=== PATIENT | female | born 1990 | race Caucasian/White ===

== ENCOUNTER 2016-09-25 17:03 | Emergency (ER) | payer BC, OTHER ==
[~2016-09-25] VITALS: Wt 61.0 kg
[2016-09-25] MEDS ORDERED: ONDANSETRON (ODT) 4 MG TAB ODT STA (18:46)
[2016-09-25] MEDS ORDERED: HYDROCODONE/APAP (5/325) TAB PO ONE (19:00)
[2016-09-25 19:03] LABS: URINE BLOOD (Dip) POC Negative (NEGATIVE)
--- NOTE | 2016-09-25 19:17 | RADRPT ---
PROCEDURE: XR CHEST AP PORTABLE CLINICAL INDICATION: Chest pain TECHNIQUE: Single frontal view of the chest COMPARISON: None. FINDINGS: The cardiomediastinal silhouette and pulmonary vasculature are normal. The lungs are clear. No consolidation, effusion, or pneumothorax. The osseous structures are unremarkable. IMPRESSION: No acute cardiopulmonary process. RPTAT:PP .Dany Malave MD, MD Date Time Electronically viewed and signed by .Dany Malave MD, MD on 09/25/2016 19:17 .V/
[2016-09-25] MEDS ORDERED: KETOROLAC 60 MG INJ IM STA (20:25)
[2016-09-25] MEDS ORDERED: PRED20TA PO (20:51)
[2016-09-25] MEDS ORDERED: HYDR-906 PO (20:51)
--- NOTE | 2016-09-25 20:58 | ERD ---
ER Documentation Chief Complaint Date/Time DATE: 09/25/16 TIME: 20:53 Chief Complaint CHEST PAIN, SOB, "THORACIC OUTLET SYNDROME" PER PT HPI 25-year-old female patient with a past medical history of thoracic outlet syndrome, depression, anxiety, PTSD, fibromyalgia, rheumatoid arthritis presents to the ED complaining of chest pain or shortness of breath that started about 2 days ago. Reports that it is an intense pain. States that she does follow-up with a specialist, Dr. Clancy for her history of thoracic outlet syndrome. Denies any trauma. Reports that her right rib region is especially painful in the mid sternum. States that she has chronic numbness and tingling of her bilateral hands. Reports that she believes that this is a flareup of her thoracic outlet syndrome. States that she has had a previous surgical operation of the right side clavicle and T1 region. States that she has an upcoming surgery within 1 year. States that the pain is worse when she is sitting and is better when she is standing. Reports that she is nauseous but denies any vomiting, diarrhea, abdominal pain, dysuria. ROS All systems reviewed and are negative except as per history of present illness. Medications Home Meds Active Scripts Prednisone* (Prednisone*) 20 Mg Tab, 40 MG PO DAILY for 4 Days, TAB Prov:RALPH BUCKNER PA-C 09/25/16 Hydrocodone/Acetaminophen (Circle 5-325 Tablet) 1 Each Tablet, 1 TAB PO QHS Y for PAIN, #3 TAB Prov:RALPH BUCKNER PA-C 09/25/16 Allergies Allergies: Coded Allergies: No Known Allergy (Unverified , 09/25/16) PMhx/Soc Hx Miscellaneous Medical Probl: Yes (RA, FM. Anxiety, PTSD) Hx Alcohol Use: No Hx Substance Use: No Hx Tobacco Use: No Smoking Status: Current every day smoker Physical Exam Vitals Vital Signs Date Time Temp Pulse Resp B/P Pulse Ox O2 Delivery O2 Flow Rate FiO2 09/25/16 21:30 80 17 133/87 99 Room Air 09/25/16 17:06 98.8 101 18 142/93 98 Physical Exam Const: [id number], well-nourished. In no acute distress. Head: Atraumatic, normocephalic Eyes: Normal Conjunctiva without injection. No purulent discharge. PERRL. EOMI ENT: Normal external ear. Ear canal without erythema. Tympanic membrane pearly omalley without effusion or bulging. Nasal canal clear with normal turbinates. Moist oropharynx without tonsillar exudates. Non-erythematous pharynx. Uvula midline. No drooling. No trismus. Neck: Full range of motion. No meningismus. No cervical lymphadenopathy. Resp: Clear to auscultation bilaterally. No wheezing, rhonchi, rales, or crackles. No accessory muscle use. No retractions. Cardio: Regular rate and rhythm. No murmurs, rubs or gallops. Abd: Soft, non tender, non distended. Normal bowel sounds. No palpable masses. No rebound tenderness. No guarding. Skin: No petechiae or rashes Back: No midline tenderness. No CVA tenderness. Ext: No cyanosis, or edema. Neur: Awake and alert. Psych: Normal Mood and Affect Results 24 hrs Laboratory Tests Test 09/25/16 19:06 09/25/16 20:06 Bedside Urine pH (LAB) 7.0 Bedside Urine Protein (LAB) Negative Bedside Urine Glucose (UA) Negative Bedside Urine Ketones (LAB) Negative Bedside Urine Blood Negative Bedside Urine Nitrite (LAB) Negative Bedside Urine Leukocyte Esterase (L Negative Serum HCG, Qualitative NEGATIVE Current Medications Medications (Trade) Dose Ordered Sig/Marciano Route PRN Reason Start Time Stop Time Status Last Admin Dose Admin Acetaminophen/ Hydrocodone Bitart (Circle (5/325)) 1 tab ONCE ONCE PO 09/25/16 19:00 09/25/16 19:01 DC 09/25/16 18:50 Ondansetron HCl (Zofran Odt) 4 mg ONCE STAT ODT 09/25/16 18:46 09/25/16 18:47 DC 09/25/16 18:49 Ketorolac Tromethamine (Toradol) 60 mg ONCE STAT IM 09/25/16 20:25 09/25/16 20:27 DC 09/25/16 20:38 Prednisone (Prednisone) 60 mg ONCE ONCE PO 09/25/16 21:30 09/25/16 21:31 DC 09/25/16 21:36 Procedures/MDM This is a 25-year-old female patient with no significant past medical history presents to the ED complaining of chest pain and slight shortness of breath. Patient is afebrile and nontoxic-appearing. Patient has normal vital signs. A chest x-ray, EKG was ordered to further evaluate patient. Negative serum hCG. PROCEDURE: XR CHEST AP PORTABLE CLINICAL INDICATION: Chest pain TECHNIQUE: Single frontal view of the chest COMPARISON: None. FINDINGS: The cardiomediastinal silhouette and pulmonary vasculature are normal. The lungs are clear. No consolidation, effusion, or pneumothorax. The osseous structures are unremarkable. IMPRESSION: No acute cardiopulmonary process. EKG reviewed and interpreted by Dr. Liu Rate/Rhythm: [100 bpm, Normal Sinus Rhythm] No ectopy, no ST elevations, normal axis. QRS, ST, T-waves: [No changes consistent w/ acute ischemia] Impression: [No evidence of ischemia or arrhythmia] Patient reports that previously what has worked for her flareups for her thoracic outlet syndrome is Prednisone, Toradol and a short course of Circle. Patient was treated here in the ED with Toradol, Prednisone, Circle with improvement of her pain. Patient will be prescribed Circle 3 tabs for nighttime for breakthrough pain. Patient states that she has naproxen at home and I instructed that she can take this along with her prednisone for her pain. Low suspicion for acute myocardial infarction, pneumothorax, pneumonia, cardiac tamponade, pulmonary embolism, AAA, aortic dissection, Boerhaave's syndrome, cardiac dysrhythmias,meningitis, intracranial bleed, seizure, stroke, TIA or other emergent conditions. This case was discussed with my supervising physician, Dr. Liu who agreed with the management and discharge plan. Discharge medications: Prednisone, Circle Follow up with primary care physician in 1-2 days. Instructed patient to return to the ED sooner for any worsening symptoms. Patient's questions were answered. Patient understood and agreed with discharge plan. Patient discharged stable. Departure Diagnosis: Primary Impression: Hx of thoracic outlet syndrome Additional Impression: Chest wall pain Condition: Stable Patient Instructions: Chest Wall Pain, Costochondritis Referrals: COMMUNITY CLINICS YOU HAVE RECEIVED A MEDICAL SCREENING EXAM AND THE RESULTS INDICATE THAT YOU DO NOT HAVE A CONDITION THAT REQUIRES URGENT TREATMENT IN THE EMERGENCY DEPARTMENT. FURTHER EVALUATION AND TREATMENT OF YOUR CONDITION CAN WAIT UNTIL YOU ARE SEEN IN YOUR DOCTORS OFFICE WITHIN THE NEXT 1-2 DAYS. IT IS YOUR RESPONSIBILITY TO MAKE AN APPOINTMENT FOR FOLOW-UP CARE. IF YOU HAVE A PRIMARY DOCTOR --you should call your primary doctor and schedule an appointment IF YOU DO NOT HAVE A PRIMARY DOCTOR YOU CAN CALL OUR PHYSICIAN REFERRAL HOTLINE AT IF YOU CAN NOT AFFORD TO SEE A PHYSICIAN YOU CAN CHOSE FROM THE FOLLOWING [facility] [address] [facility] [address] [facility] [address] [facility] [address] [facility] [address] [facility]. [facility] [address] [facility]. [facility] YOU HAVE RECEIVED A MEDICAL SCREENING EXAM AND THE RESULTS INDICATE THAT YOU DO NOT HAVE A CONDITION THAT REQUIRES URGENT TREATMENT IN THE EMERGENCY DEPARTMENT. FURTHER EVALUATION AND TREATMENT OF YOUR CONDITION CAN WAIT UNTIL YOU ARE SEEN IN YOUR DOCTORS OFFICE WITHIN THE NEXT 1-2 DAYS. IT IS YOUR RESPONSIBILITY TO MAKE AN APPOINTMENT FOR FOLOW-UP CARE. IF YOU HAVE A PRIMARY DOCTOR --you should call your primary doctor and schedule and appointment IF YOU DO NOT HAVE A PRIMARY DOCTOR YOU CAN CALL OUR PHYSICIAN REFERRAL HOTLINE AT . IF YOU CAN NOT AFFORD TO SEE A PHYSICIAN YOU CAN CHOSE FROM THE FOLLOWING [facility]: [facility] [address] [place] [address] [facility] [address] [place] [address] [facility] [address] [place] [address] [facility]SPECIALT[facility] Additional Instructions: Call your primary care doctor TOMORROW for an appointment during the next 2-3 days.See the doctor sooner or return here if your condition worsens before your appointment time. RALPH BUCKNER PA-C Sep 25, 2016 20:58
[2016-09-25 21:30] VITALS: BP 133/87; PULSE 80; RESP 17
[2016-09-25] MEDS ORDERED: predniSONE 20 MG TAB PO ONE (21:30)
== END 2016-09-25 22:14 | disposition home or self-care (01) ==
LOC: FTE 17:03
DX: G54.0 Brachial plexus disorders (principal); R07.89 Other chest pain; F17.210 Nicotine dependence, cigarettes, uncomplicated
CPT/HCPCS: 71010; 81003; 84703; 93005; J1885; J7512; 96372